=== PATIENT | female | born 1995 | race African-American/Black ===

== ENCOUNTER 2017-01-05 19:36 | Emergency (ER) | payer SELFPAY ==
[~2017-01-05] VITALS: Ht 158.8 cm; Wt 59.0 kg
[2017-01-05 19:39] VITALS: BP 142/84; PULSE 106; RESP 16; TEMP 98.2; O2SAT 99
[2017-01-05] MEDS ORDERED: FAMOTIDINE 20 MG TAB PO ONE (20:30)
--- NOTE | 2017-01-05 20:32 | PD ---
HPI Chief Complaint: ENT Complaint Time Seen by Provider: 20:28 Travel History International Travel<30 days: No Contact w/Intl Traveler<30days: No Traveled to known affect area: No History of Present Illness HPI Patient comes in complaining of possible allergic reaction that began last night after eating some seafood. Patient states that she did not eat anything out of the ordinary, however as she was finishing eating seafood she felt like the right side of her throat was swelling. Patient states she's been taking Benadryl that has improved her symptoms. Patient denies any difficulty breathing or swallowing. Denies any fevers, shortness of breath, nausea, vomiting, chest pain, headaches, or previous episodes like this. Patient denies any other known new allergen exposures. PFSH Past Medical History Medical History: Denies Significant Hx Immunizations Current: Yes Tetanus Vaccination: Never Vaccinated Influenza Vaccination: No ?: Unknown Social History Alcohol Use: Yes (socially) Tobacco Use: Yes Substance Use: No Allergies-Medications (Allergen,Severity, Reaction): Coded Allergies: No Known Allergies (Unverified , 01/05/17) Reported Meds & Prescriptions Reported Meds & Active Scripts Active Pepcid (Famotidine) 20 Mg Tab 20 Mg PO BID 10 Days Medrol Dosepak (Methylprednisolone) 4 Mg Dspk 4 Mg PO DIRECTED Per Pharmacist direction Review of Systems Except as stated in HPI: all other systems reviewed are Neg Physical Exam Narrative GENERAL: Well-developed, well nourished, in no acute distress, and non-ill appearing. SKIN: Warm and dry. HEAD: Atraumatic. Normocephalic. EYES: Pupils equal and round. EOMI. No scleral icterus. No injection or drainage. ENT: No nasal bleeding or discharge. Mucous membranes pink and moist. Tympanic membranes pearly saul bilaterally. Posterior pharynx mildly erythematous on the right without exudate. Uvula is midline. No tenderness to facial sinuses to palpation. Patient speaking in full sentences and swallowing saliva. NECK: Trachea midline. No cervical lymphadenopathy or stridor. Supple. No nuclear rigidity. CARDIOVASCULAR: Regular rate and rhythm. No murmur appreciated. RESPIRATORY: No accessory muscle use. No respiratory distress. Clear to auscultation. Breath sounds equal bilaterally. GASTROINTESTINAL: Abdomen soft, non-tender, nondistended. Hepatic and splenic margins not palpable. No pulsatile mass. MUSCULOSKELETAL: No obvious deformities. No clubbing. No cyanosis. No edema. Full range of motion. NEUROLOGICAL: Awake and alert. No obvious cranial nerve deficits. Motor grossly within normal limits. Normal speech. PSYCHIATRIC: Appropriate mood and affect; insight and judgment normal. Data Data Last Documented VS Vital Signs Date Time Temp Pulse Resp B/P Pulse Ox O2 Delivery O2 Flow Rate FiO2 01/05/17 19:39 98.2 106 16 142/84 99 Orders Famotidine (Pepcid) (01/05/17 20:30) Group A Rapid Strep Screen (01/05/17 20:27) Prednisone (Deltasone) (01/05/17 20:45) Strep Culture (Group A) (01/05/17 20:30) MDM Medical Decision Making Medical Screen Exam Complete: Yes Emergency Medical Condition: Yes Differential Diagnosis Allergic reaction, strep pharyngitis, viral pharyngitis, other Narrative Course Appears allergic reaction. There is no airway involvement nor difficulty swallowing. Patient looks great. The patient is tolerating fluids. The patient looks great, the findings are minimal and due to non-progression of symptoms here the patient is safe to discharge home. The patient feels comfortable with plan and will return immediately if symptoms begin to worsen. There is no rash this time. The patient is to continue histamine 1 and 2 blockade as well as steroids. The patient was instructed to avoid potential precipitating factor and to follow up with their regular physician possible allergy testing. The patient agrees with plan. Patient in no obvious distress upon re-evaluation. All pertinent laboratory result(s) discussed with patient. Patient was asked if they wanted to speak to my attending, which the patient did not wish to do at this time. Any questions/ concerns in reference to patient diagnosis/condition discussed and clarified prior to patient's discharge. Reinforced sheer importance of close follow up with patient's primary physician or primary care clinic. Instructed patient to return to ED immediately, if symptoms return/worsen. Pt showed understanding of above instructions. Further instructions and recommendations were detailed in discharge paperwork. Pt ambulated without difficulty out of ED at discharge. Diagnosis Primary Impression: Allergic reaction Qualified Code: T78.40XA - Allergic reaction, initial encounter Patient Instructions: General Allergic Reaction (ED), General Instructions Additional Instructions: Follow-up with your primary care physician as soon as possible for reevaluation and possible allergy testing. Take all medication as prescribed. Use over-the- counter Claritin or Zyrtec or Benadryl as needed for symptomatic relief. Follow instructions on the packaging. Return to the emergency department if symptoms get worse. Med/Other Pt SpecificInfo: Prescription(s) given Scripts Famotidine (Pepcid)20 Mg Tab20 Mg PO BID 10 Days Ref 0 Prov:Sarah Cruz MD 01/05/17 Methylprednisolone Dosepak (Medrol Dosepak)4 Mg Dspk4 Mg PO DIRECTED #1 DSPK Ref 0 Per Pharmacist direction Prov:Sarah Cruz MD 01/05/17 Disposition: 01 DISCHARGE HOME Condition: Stable Tyrone Brown Jan 05, 2017 20:32
[2017-01-05] MEDS ORDERED: predniSONE 20 MG TAB PO ONE (20:45)
[2017-01-05] MEDS ORDERED: MEDR4PAK PO (21:14)
[2017-01-05] MEDS ORDERED: FAMO1TAB37 PO (21:14)
== END 2017-01-05 21:51 | disposition home or self-care (01) ==
LOC: NEPB 19:36
DX: T78.40XA Allergy, unspecified, initial encounter (principal)
CPT/HCPCS: 87081; 87880; 99283; J7512

== ENCOUNTER 2017-03-29 14:28 | Emergency (ER) | payer SELFPAY ==
[~2017-03-29] VITALS: Ht 158.8 cm; Wt 57.0 kg
[~2017-03-29 14:28] MED LIST: FAMO1TAB37 PO; MEDR4PAK PO
[2017-03-29 14:30] VITALS: BP 134/70; PULSE 64; RESP 14; TEMP 98.2; O2SAT 98
[2017-03-29 15:14] VITALS: BP 109/64; PULSE 61; RESP 14; TEMP 98.7; O2SAT 100
--- NOTE | 2017-03-29 15:22 | PD ---
HPI Chief Complaint: Pain: Acute or Chronic Time Seen by Provider: 15:21 Travel History International Travel<30 days: No Contact w/Intl Traveler<30days: No Traveled to known affect area: No History of Present Illness HPI 22 YO F presents to the ED for evaluation of "a few months" history right lateral rib pain. No exacerbating or alleviating factors. Patient denies known trauma. Denies SOB, CP, cough, fever, chills. LMP " a few weeks ago." Uses oral contraception, denies risk of . Denies chronic health problems. Takes no daily medications. PFSH Past Medical History Immunizations Current: Yes ?: Not Social History Alcohol Use: Yes (socially) Tobacco Use: Yes (1 cigar a day) Substance Use: No Allergies-Medications (Allergen,Severity, Reaction): Coded Allergies: No Known Allergies (Unverified , 03/29/17) Reported Meds & Prescriptions Reported Meds & Active Scripts Active Ibuprofen 600 Mg Tab 600 Mg PO Q8H Review of Systems Except as stated in HPI: all other systems reviewed are Neg Physical Exam Narrative GENERAL: Well-nourished, well-developed thin black female in NAD. SKIN: Focused skin assessment warm/dry. Point tenderness to palpation of the lateral aspect of the right lower ribs. No mass, warmth, edema, ecchymosis, erythema noted. HEAD: Normocephalic. EYES: No scleral icterus. No injection or drainage. NECK: Supple, trachea midline. No JVD or lymphadenopathy. CARDIOVASCULAR: Regular rate and rhythm without murmurs, gallops, or rubs. RESPIRATORY: Breath sounds clear and equal bilaterally. No accessory muscle use. GASTROINTESTINAL: Abdomen soft, non-tender, nondistended. Active bowel sounds. MUSCULOSKELETAL: No cyanosis, or edema. Ambulatory. Moves the extremities spontaneously. BACK: Nontender without obvious deformity. No CVA tenderness. Data Data Last Documented VS Vital Signs Date Time Temp Pulse Resp B/P Pulse Ox O2 Delivery O2 Flow Rate FiO2 03/29/17 15:14 98.7 61 14 109/64 100 Orders Acetamin-Hydrocod 325-5 Mg ([place] 5-325 (03/29/17 15:30) Ribs, Uni (W/Exp Cxr-Min 3vw) (03/29/17 15:24) Ed Urine Pregnancytest Poc (03/29/17 15:24) [facility] Medical Decision Making Medical Screen Exam Complete: Yes Emergency Medical Condition: Yes Differential Diagnosis rib fracture versus costochondritis versus contusion versus musculoskeletal pain versus other Narrative Course 22 YO F presents to the ED for evaluation of "a few months" history right lateral rib pain. No exacerbating or alleviating factors. Patient denies known trauma. Denies SOB, CP, cough, fever, chills. LMP " a few weeks ago." Uses oral contraception, denies risk of . Vitals reviewed. On exam the patient is well appearing. There is point tenderness to palpation of the lower aspect of the lateral rib cage. No mass, ecchymosis, edema, erythema or warmth noted. The patient was administered 5mg Lortab PO. X-ray reveals no acute disease per radiology read. I discussed the results of the x-ray with the patient. I recommended a course of antiinflammatories as initial treatment with outpatient follow up with the PCP if symptoms don't resolve. The patient called her mother and I again explained the findings and the plan of care. The patients mother states that the patients grandmother " of lupus" and that is why she is concerned for her daughter. I explained that the workup for lupus is not performed in the ED. 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 There is no indication for lab work at this time. The patient was again advised to seek the advice of her PCP if treatment doesn't resolve her symptoms. The patient and her mother indicated understanding of the care plan. The patient is stable and discharged home. Diagnosis Primary Impression: Rib pain on right side Referrals: Primary Care Physician Patient Instructions: Chest Wall Pain (ED), General Instructions Additional Instructions: Rest, hydrate. Return to normal, gentle activity as tolerated. Take ibuprofen as prescribed. Follow up with the primary care provider. Return to the ED for any urgent or emergent medical condition. Med/Other Pt SpecificInfo: Prescription(s) given Scripts Ibuprofen 600 Mg [id number] Mg PO Q8H #15 TAB Ref 0 Prov:Rubi Jean MD 03/29/17 Disposition: 01 DISCHARGE HOME Condition: Stable Yoanna Nazario Mar 29, 2017 15:21
[2017-03-29] MEDS ORDERED: ACETAMINOPHEN/HYDROcodone 325 MG/5 MG TAB PO ONE (15:30)
--- NOTE | 2017-03-29 16:56 | RADRPT ---
EXAM DATE/TIME: 03/29/2017 16:03 [facility] COMPARISON: No previous studies available for comparison. INDICATIONS : Right side posterior rib pain since November. MEDICAL HISTORY : None. SURGICAL HISTORY : None. ENCOUNTER: Initial ACUITY: 4 - 6 months PAIN SCORE: 8/10 LOCATION: Right posterior Ribs FINDINGS: Multiple views of the right ribs were performed. There is no evidence of displaced fracture. No timi tructive lesions or areas of periosteal thickening are seen. Expiratory view of the chest is negativ e for pneumothorax. The mediastinal structures are midline. CONCLUSION: No acute disease. Jose Eduardo Patel MD on March 29, 2017 at 16:53 Board Certified Radiologist. This report was verified electronically.
[2017-03-29] MEDS ORDERED: IBUP-232 PO (16:58)
== END 2017-03-29 17:24 | disposition home or self-care (01) ==
LOC: NEPD 14:28
DX: R07.81 Pleurodynia (principal)
CPT/HCPCS: 71101; 84703; 99283